=== PATIENT | male | born 1950 | race Two or more races ===

== ENCOUNTER → 2017-03-04 | Outpatient (CLI) | payer OTHER ==
[~2017-03-04] MED LIST: ASPIR 8181 MG ORAL; [UNRECOGNIZED DRUG - OTHER]; cholesterol med
--- NOTE | 2017-03-04 09:52 | GI Initial Consult Note ---
History of Present Illness General Date patient seen: Mar 04, 2017 Time patient seen: 09:39 Referring physician: ALTON Reason for Consultation: ABDOMINAL BLOATING/PAIN Present Illness HPI 66 year male patient referred to [facility] by Dr. Banks for evaluation of abdominal pain. Pt presents with c/o of GERD, nausea in AM and night, abdominal bloating , weight loss over 10 pounds, and episodes of constipation which is now diarrhea. No prior history of any endoscopic procedures. Home Meds Reported Medications Aspirin* (ASPIR 81*) 81 Mg Tablet., 81 MG ORAL DAILY, TAB 03/04/17 Med list reviewed/reconciled: Yes Allergies: Coded Allergies: No Known Allergies (Unverified , 03/04/17) Patient History History Provided By: Patient PMH Narrative DM Cholesterol (patient cannot recall his medication) PSHx N/A Family History Narrative Father - Colon CA Social History: Reports: other - coffee, smoking - 14-20 daily Review of Systems All Other Systems: negative except mentioned in HPI Physical Exam T 97.9 BP 107/71 P 59 99 RA HT 5'9 WT 150 lbs Sp02 EP Interpretation: reviewed General Appearance: well appearing, no apparent distress, alert Head: normocephalic EENT: PERRL/EOMI, normal ENT inspection Neck: full range of motion, supple Respiratory: normal breath sounds, no respiratory distress Cardiovascular: normal rate Gastrointestinal: normal inspection, non tender, soft, normal bowel sounds Rectal: deferred Genitourinary: normal inspection Musculoskeletal: normal inspection, back normal Neurologic: normal inspection, alert, oriented x3, responsive Psychiatric: normal inspection, judgement/insight normal, memory normal Skin: normal inspection, normal color, no rash, warm/dry Lymphatic: normal inspection, no adenopathy GI: Plan Problems: (1) GERD (gastroesophageal reflux disease) (2) Nausea (3) Abdominal bloating (4) Constipation (5) Diarrhea (6) Colonoscopy planned (7) Weight loss Plan EGD/colonoscopy pending prior auth - will contact patient Seen with Dr. Salazar. Thank you for referring this patient. Soraya Pearson N.P. Mar 04, 2017 09:52
[2017-03-04 16:25] VITALS: BP 107/71
== END | disposition home or self-care (01) ==
LOC: PAN 09:12
DX: K21.9 Gastro-esophageal reflux disease without esophagitis (principal); R11.0 Nausea; R14.0 Abdominal distension (gaseous); K59.00 Constipation, unspecified; R19.7 Diarrhea, unspecified; R63.4 Abnormal weight loss; Z79.82 Long term (current) use of aspirin; E11.9 Type 2 diabetes mellitus without complications; E78.00 Pure hypercholesterolemia, unspecified; Z80.0 Family history of malignant neoplasm of digestive organs; F17.200 Nicotine dependence, unspecified, uncomplicated
CPT/HCPCS: 99201

== ENCOUNTER 2017-04-16 07:47 | Day surgery (SDC) | payer OTHER ==
[2017-04-16] VITALS (12 sets, daily range): BP systolic 106–138; BP diastolic 68–82
[~2017-04-16] VITALS: Ht 172.7 cm; Wt 72.6 kg
--- NOTE | 2017-04-16 06:34 | Anethesia Preoperative Eval ---
Anesthesia Pre-op PMH/ROS General Date of Evaluation: April 16, 2017 Anesthesiologist: darien ASA Score: ASA 2 Mallampati Score Class I : Soft palate, uvula, fauces, pillars visible Class II: Soft palate, uvula, fauces visible Class III: Soft palate, base of uvula visible Class IV: Only hard plate visible Mallampati Classification: Class III Surgeon: angeles Surgical Procedure: egd diagnostic/colonoscopy Anesthesia History: none Social History: smoking - quit 2 months ago Family History: no anesthesia problems Allergies: Coded Allergies: No Known Allergies (Unverified , 03/04/17) Medications: see eMAR Past Medical History Cardiovascular: Reports: other - hypercholesterolemia Gastrointestinal/Genitourinary: Reports: GERD, other - constipation Endocrine: Reports: DM Other: other - schizophrenia Anesthesia Pre-op Phys. Exam Physician Exam Constitutional: NAD Neurologic: CN 2-12 intact Cardiovascular: RRR, no M/R/G Respiratory: CTA Gastrointestinal: S/NT/ND Airway Exam Mallampati Score: Class II MO: full Neck: supple ROM: full Teeth: other - dentures Dentures: upper - bridges Anesthesia Pre-op A/P Risk Assessment & Plan Plan: EGD diagnostic/colonoscopy Status Change Before Surgery: JERED Jimenez April 16, 2017 06:34
[2017-04-16] MEDS ORDERED: Lidocaine 1% MPF 10mg/ml 5ml ONE (07:48)
[2017-04-16] MEDS ORDERED: Propofol 10mg/ml 20ml IV ONE (07:48)
--- NOTE | 2017-04-16 08:44 | Anethesia Preoperative Eval ---
Anesthesia Pre-op PMH/ROS General Date of Evaluation: April 16, 2017 Time of Evaluation: 08:10 Anesthesiologist: suzan ASA Score: ASA 2 Mallampati Score Class I : Soft palate, uvula, fauces, pillars visible Class II: Soft palate, uvula, fauces visible Class III: Soft palate, base of uvula visible Class IV: Only hard plate visible Mallampati Classification: Class II Surgeon: angeles Diagnosis: GERD Surgical Procedure: EGD diagnostic/colonocopy Anesthesia History: none Social History: smoking - quit 2 months ago Family History: no anesthesia problems Allergies: Coded Allergies: No Known Allergies (Unverified , 03/04/17) Medications: see eMAR Past Medical History Gastrointestinal/Genitourinary: Reports: GERD Endocrine: Reports: DM - preDM Anesthesia Pre-op Phys. Exam Physician Exam Last Vital Signs Date Time Temp Pulse Resp B/P Pulse Ox O2 Delivery O2 Flow Rate FiO2 04/16/17 08:08 98.0 60 19 133/74 98 Room Air Constitutional: NAD Neurologic: CN 2-12 intact Cardiovascular: RRR, no M/R/G Respiratory: CTA Gastrointestinal: S/NT/ND Airway Exam Mallampati Score: Class II Neck: supple Dentures: upper - bridge Anesthesia Pre-op A/P Risk Assessment & Plan Plan: egd diagnostic/colonocopy Status Change Before Surgery: JERED Jimenez April 16, 2017 08:44
[2017-04-16] MEDS ORDERED: NKM (08:46)
--- NOTE | 2017-04-16 08:55 | Pre-Procedure Note/Attestation ---
Pre-Procedure Note/Attestation Complete Prior to Procedure Planned Procedure: not applicable Procedure Narrative: EGD/colon Indications for Procedure Pre-Operative Diagnosis: screening colon, GERD Attestation I attest that I discussed the nature of the procedure; its benefits; risks and complications; and alternatives (and the risks and benefits of such alternatives ), prior to the procedure, with the patient (or the patient's legal freight representative). I attest that, if there was a reasonable possibility of needing a blood transfusion, the patient (or the patient's legal freight representative) was given the [facility] standardized written summary, pursuant to the [place] Blood Safety Act ([place] Health and Safety Code # 1645, as amended). I attest that I re-evaluated the patient just prior to the surgery and that there has been no change in the patient's H&P, except as documented below: DONALDO TUCKER April 16, 2017 08:55
--- NOTE | 2017-04-16 08:56 | Short Stay Surgery H&P ---
History of Present Illness History of Present Illness Chief Complaint see recent consult note HPI Mj Rebollar is a 66 year old male who was admitted on for Abdominal Pain / Constipation Patient History Allergies: Coded Allergies: No Known Allergies (Unverified , 03/04/17) PAST MEDICAL HISTORY: Past Surgeries: Social History: Medication History Scheduled No Known Medications* (NKM - No Known Medications*), 0 ., (Reported) Discontinued Medications Aspirin* (Aspir 81*), 81 MG ORAL DAILY, (Reported) Discontinued Reason: Pt stopped taking med [Dm], (Reported) Discontinued Reason: Pt stopped taking med [cholesterol med], (Reported) Discontinued Reason: Pt stopped taking med Physical Exam Vital Signs Last Vital Signs Date Time Temp Pulse Resp B/P Pulse Ox O2 Delivery O2 Flow Rate FiO2 04/16/17 08:08 98.0 60 19 133/74 98 Room Air Plan Attestation Are the patient's medical conditions optimized for surgery? DONALDO TUCKER April 16, 2017 08:56
--- NOTE | 2017-04-16 09:48 | Endoscopy Procedure Note ---
Endoscopy Procedure Note Indication for Procedure: screening colon, gerd Procedures Performed: EGD, colonoscopy Operative Findings/Diagnosis: 12 polyps, diverticulosis Specimen: yes Pt Tolerated Procedure Well: Yes Estimated Blood Loss: none Anesthesiologist: xavier Anesthesia: MAC Implant(s) used?: No 50 yrs or older w/o bx or poly: No 10yrs. F/U not recommended: Yes If not recommended, why?: Above average risk 10 yrs. F/U needed: Yes 18 years or older w/prev. colo: Yes <3yrs. since last colonoscopy: No DONALDO TUCKER April 16, 2017 09:48
--- NOTE | 2017-04-16 09:54 | Immediate Post-Op Evaluation ---
Immediate Post-Op Evalulation Immediate Post-Op Evalulation Procedure: egd diagnostic/colonoscopy Date of Evaluation: April 16, 2017 Time of Evaluation: 09:51 IV Fluids: 0.9ns 550ml Blood Products: none Estimated Blood Loss: neglible Urinary Output: na Blood Pressure Systolic: 106 Blood Pressure Diastolic: 72 Pulse Rate: 62 Respiratory Rate: 16 O2 Sat by Pulse Oximetry: 100 Temperature (Fahrenheit): 97.5 Pain Score (1-10): 0 Nausea: No Vomiting: No Complications none Patient Status: awake, reacts, patent Hydration Status: adequate Drug: none JERED CORDERO April 16, 2017 09:54
--- NOTE | 2017-04-16 12:14 | 48 Hour Post Anesthesia Eval ---
Post Anesthesia Evaluation Procedure: egd diagnostic/colonoscopy Date of Evaluation: April 16, 2017 Time of Evaluation: 10:01 Blood Pressure Systolic: 123 0: 78 Pulse Rate: 59 Respiratory Rate: 14 Temperature (Fahrenheit): 97.4 O2 Sat by Pulse Oximetry: 100 Airway: patent Nausea: No Vomiting: No Hydration Status: adequate Cardiopulmonary Status: stable Mental Status/LOC: patient returned to baseline Post-Anesthesia Complications: none Follow-up care needed: patient intructions given JERED CORDERO April 16, 2017 12:14
--- NOTE | 2017-04-16 18:31 | Procedure Note ---
DATE OF PROCEDURE: 04/16/2017 SURGEON: Benson Salazar M.D. PROCEDURE: Upper endoscopy with biopsy and colonoscopy with polypectomy and biopsy. ANESTHESIOLOGIST: Gladys Mckeon M.D. INSTRUMENT: Olympus adult flexible upper endoscope and colonoscope. INDICATION: 1. Weight loss. 2. Screening colonoscopy. 3. Gastroesophageal reflux disease. REASON FOR PROCEDURE: The procedure, risks, benefits, and possible consequences, including hemorrhage, aspiration, perforation and infection, and alternative treatments, were explained to the patient/legal guardian by Dr. Benson Salazar and the patient/legal guardian understood and accepted these risks. DESCRIPTION OF PROCEDURE: After informed consent was obtained and the patient was adequately sedated, Olympus upper endoscope was advanced from mouth into the second portion of the duodenum and retroflexion was performed in the stomach. The patient had diffuse gastritis. Random biopsy from antrum was obtained to rule out H. pylori infection. There was some inflammation and duodenitis in the duodenal bulb and second portion of the duodenum. There was a questionable may be a shallow ulceration in the duodenal bulb too, not actively bleeding at this time. At this time, the upper endoscope was retrieved and the patient was turned over for colonoscopy. First, rectal exam was performed, which was positive for internal hemorrhoids. Then, the scope was advanced from the rectum into the cecum. Quality of prep was fair. Actually, this exam was limited because of the prep. Cecum was definitely very difficult to examine. There was a solid stool sitting at the cecum and throughout the colon, there was some thick greenish fluid and semisolid stool throughout the colon making the examination also very difficult. I would say about 20% to 25% of the colonic mucosa was not fully examined with this prep. The patient had a total of 12 polyps seen in this colonoscopy examination. One in the cecum, which was small was removed with the cold biopsy forceps technique, one in the ascending colon, two in the transverse, five in the sigmoid descending colon area, and three in the rectum. Two of these polyps were removed with the hot snare polypectomy technique, one in the rectum and one in the descending colon. Retroflexion of rectum showed evidence of internal hemorrhoids. SUMMARY OF FINDINGS: 1. Gastritis. 2. Duodenitis. 3. Possible shallow duodenal ulceration. 4. Twelve colonic polyps removed, see above for details. 5. Significant diverticula in sigmoid colon. 6. Internal hemorrhoids. 7. Fair prep, 25% of the colonic mucosa was not examined in this prep. RECOMMENDATIONS: Follow biopsies and treat accordingly. Given these number of polyps and given this quality of prep, the patient would need a repeat colonoscopy in one year. The patient would also need to follow as an outpatient in the office. We will hopefully start on a PPI for the duodenitis and gastritis and also follow H. pylori and if it is positive, treat for H. pylori. Also, we will do further workup for weight loss, may be he would need a CT. I want to thank, Dr. Steven Banks, for this kind referral. Benson Salazar M.D. DR: KEN JOB#: [id number] CC: Chaka Banks M.D.; Fax#: [phone]
== END 2017-04-16 11:45 | disposition home or self-care (01) ==
LOC: GAS 07:47
DX: Z12.11 Encounter for screening for malignant neoplasm of colon (principal); D12.0 Benign neoplasm of cecum; D12.2 Benign neoplasm of ascending colon; D12.4 Benign neoplasm of descending colon; D12.3 Benign neoplasm of transverse colon; K62.1 Rectal polyp; R63.4 Abnormal weight loss; K21.9 Gastro-esophageal reflux disease without esophagitis; K29.50 Unspecified chronic gastritis without bleeding; B96.81 Helicobacter pylori [H. pylori] as the cause of diseases classified elsewhere; K29.80 Duodenitis without bleeding; E78.00 Pure hypercholesterolemia, unspecified; E11.9 Type 2 diabetes mellitus without complications; F20.9 Schizophrenia, unspecified; Z87.891 Personal history of nicotine dependence
CPT/HCPCS: 82962; 94003; 94150

== ENCOUNTER 2017-04-30 13:39 | Outpatient (CLI) | payer OTHER ==
[~2017-04-30 13:39] MED LIST changes: +NKM
--- NOTE | 2017-04-30 14:13 | GI Progress Note ---
Assessment/Plan Problems: (1) Helicobacter pylori (H. pylori) ICD Codes: A04.8 - Other specified bacterial intestinal infections SNOMED: 673296794 (2) Colonic polyp ICD Codes: K63.5 - Polyp of colon SNOMED: 69346810 (3) GERD (gastroesophageal reflux disease) ICD Codes: K21.9 - Gastro-esophageal reflux disease without esophagitis SNOMED: 853513041 (4) Abdominal bloating ICD Codes: R14.0 - Abdominal distension (gaseous) SNOMED: 769688549 (5) Nausea ICD Codes: R11.0 - Nausea SNOMED: 522047312 Status: stable Status Narrative Seen with Dr. Salazar. Assessment/Plan S/P EGD/COLONOSCOPY SUMMARY OF FINDINGS: 1. Gastritis. 2. Duodenitis. 3. Possible shallow duodenal ulceration. 4. Twelve colonic polyps removed, see above for details. 5. Significant diverticula in sigmoid colon. 6. Internal hemorrhoids. 7. Fair prep, 25% of the colonic mucosa was not examined in this prep. RECOMMENDATIONS: H. Pylori Tx >> Amoxicillin + Biaxan + Omeprazole monitor weight, consider CT if patient has further weight loss RTC x 3 months repeat colonoscopy x 1 year given high number of polyps Subjective Gastrointestinal/Abdominal: Reports: no symptoms Objective T 98.4 BP 127/77 P 61 97 RA Denies weight loss General Appearance: no apparent distress, alert Cardiovascular: normal rate Respiratory/Chest: normal breath sounds, no respiratory distress Abdominal Exam: normal bowel sounds, non tender, soft Extremities: normal range of motion Soraya Pearson N.P. April 30, 2017 14:13
== END 2017-04-30 14:00 | disposition home or self-care (01) ==
LOC: PAN 13:39
DX: A04.8 Other specified bacterial intestinal infections (principal); K63.5 Polyp of colon; K21.9 Gastro-esophageal reflux disease without esophagitis; R14.0 Abdominal distension (gaseous); R11.0 Nausea
CPT/HCPCS: 99211